=== PATIENT | male | born 1945 | race Caucasian/White ===

== ENCOUNTER 2019-01-22 10:13 | Observation (INO) ==
--- NOTE | 2019-01-22 10:26 | Emergency Department Note ---
Neuro HPI - General Chief Complaint: Stroke Symptoms Stated Complaint: Stroke SX Time Seen by Provider: 01/22/19 10:25 Source: patient Mode of arrival: ambulatory Limitations: no limitations - History of Present Illness HPI Narrative: 73-year-old male with a several hour history of left-sided facial droop slurred speech which is slowly improving. Apparently he had an episode of confusion slurred speech and inability to use right hand back at the beginning of November for which he saw his primary care provider on 12/01/2018. MRI the next day showed concern for demyelinating disease versus ADEM because of new white matter changes. These subsequently improved but then this morning he awoke with above- noted symptoms. He was last seen normal yesterday evening. Denies being on a blood thinner or diabetes. This morning he was talking with his about the plans for the day but he was somewhat unintelligible. Is not having any motor symptoms today and is able to move his right hand more normally. - Related Data Home Medications: Home Medications Medication Instructions Recorded Confirmed omeprazole 20 mg capsule,delayed 20 mg PO QAM cap 02/16/18 01/19/19 release aspirin 81 mg tablet 162 mg PO BID tab 04/06/18 01/19/19 Previous Rx's Medication Instructions Recorded Prochlorperazine [Compazine] 10 mg PO Q6HP PRN #15 tab 08/16/18 losartan 25 mg tablet 25 mg PO QDAY #90 tab 11/24/18 ketoconazole 200 mg tablet 200 mg PO QDAY #7 tab 01/05/19 meloxicam 15 mg tablet 15 mg PO QDAY #90 tab 01/05/19 albuterol sulfate HFA 90 1 puff INHALATION Q6H PRN #18 g 01/19/19 mcg/actuation aerosol inhaler doxycycline hyclate 100 mg tablet 100 mg PO BID #20 tab 01/19/19 Allergies/Adverse Reactions: Allergies Allergy/AdvReac Type Severity Reaction Status Date / Time prednisone Allergy Unknown Unknown Verified 01/19/19 09:47 opioids Allergy Unknown Unknown Uncoded 01/19/19 09:47 Review of Systems All systems ED: reviewed and negative except as stated. Past Medical History - Past Medical History Attestation: Yes: The following information was validated with the patient. PMF Narrative: Family History (Last Reviewed 01/19/19 @ 09:59 by RAMEZ Hawk) Father Heart attack Other Family history of cardiac disorder Family history of transient ischemic attacks Medical History (Last Reviewed 01/19/19 @ 09:59 by RAMEZ Hawk) Vertigo (Chronic) Xerosis of skin (Chronic) Tachycardia (Chronic) Skin lesion (Chronic) Right low back pain (Chronic) Kidney disease, chronic, stage III (moderate, EGFR 30-59 ml/min) (Chronic) Hypertension (Chronic) Enlarged prostate (Chronic) Elevated serum creatinine (Chronic) Chronic kidney disease (Chronic) Arthralgia of left hip (Chronic) Angina bullosa hemorrhagica (Chronic) Acid reflux (Chronic) Abnormal laboratory test (Chronic) Urinary hesitancy (Chronic) Generalized pruritus (Chronic) Tongue abnormality (Chronic) Dermatitis (Chronic) Skin rash (Chronic) Other chest pain (Chronic) Tinea cruris (Chronic) Fatigue (Chronic) Constipation (Chronic) Dyspnea (Chronic) Cyst, Hamilton's knee (Chronic) BPH (benign prostatic hyperplasia) (Chronic) Swollen tongue (Chronic) Knee problem (Acute) Acute bronchitis (Resolved) Acute sinusitis (Resolved) Allergic reaction to drug (Resolved) Bronchitis (Resolved) Other acute sinusitis (Resolved) Pneumonia (Resolved) Past Surgical History (Last Reviewed 01/19/19 @ 09:59 by RAMEZ Hawk) History of knee surgery (Chronic) History of repair of rotator cuff (Chronic) Medical history: 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 Denies: asthma, atrial fibrillation, cancer, COPD, CVA, DVT, DM, pulmonary embolus Psychiatric history: Denies: anxiety, depression Surgical history ED: Reports: knee replacement (left) - Social History smoking status: Never smoker Alcohol use: Reports: None Drug use: Reports: none. Denies: marijuana Physical Exam I initially saw this patient he had a left-sided facial droop. However on recheck proximally 15 minutes later it had resolved. Similarly slurred speech resolved. He is normocephalic atraumatic. Conjunctive are clear sclerae white and icteric. Extraocular movements are intact. Pupils are equal round reactive to light. No nasal discharge or congestion. Oropharynx pink and moist. Tongue is midline. Neck is supple without lymphadenopathy or thyromegaly. Heart is regular rate and rhythm no murmur appreciated. Lungs are clear to auscultation bilaterally without wheezes rales rhonchi or respiratory distress. +2 radial pulse bilaterally. Bilateral lcsw are normal and symmetrical. Similarly hip strength and shoulder strength bilaterally appear normal and symmetrical plus 3 out of 5. He is moving his fingers and toes normally and sensation to pressure and light touch appear intact. He does have some onychomycosis to bilateral toes. He is alert oriented able to answer questions appropriately. Memory seems to be intact to both short and long-term. Limitations: no limitations Course Vital Signs Temperature 97.4 F 01/22/19 10:13 Pulse Rate 94 H 01/22/19 10:13 Respiratory Rate 20 01/22/19 10:13 Blood Pressure 146/76 01/22/19 10:13 Pulse Oximetry (%) 100 01/22/19 10:13 Temperature 97.4 F 01/22/19 11:03 Pulse Rate 84 01/22/19 12:47 Respiratory Rate 14 01/22/19 12:47 Blood Pressure 149/115 01/22/19 12:47 Pulse Oximetry (%) 96 01/22/19 12:47 Neuro Symptoms/Deficit - Lab Data Lab results reviewed: Yes I reviewed the patient's lab results. Result diagrams: 01/22/19 10:25 01/22/19 10:25 Lab Results 01/22/19 01/22/19 01/22/19 Range/Units 10:25 10:25 10:25 WBC 8.8 (4.5-11.0) K/mcL RBC 5.53 (4.50-5.90) M/mcL Hgb 17.0 H (13.5-16.5) g/dL Hct 50.9 (41.0-55.0) % POC Hct 50.0 (41.0-55.0) % MCV 92.0 (80.0-100.0) fL MCH 30.8 (26.0-34.0) pg MCHC 33.5 (31.0-36.0) g/dL RDW 14.0 (11.5-14.5) % Plt Count 286 (140-440) K/mcL MPV 7.5 (7.4-10.4) fL Gran % 50.6 (38.0-78.0) % Lymph % (Auto) 34.4 (15.5-49.0) % [place] % (Auto) 9.7 (1.0-12.0) % Eos % (Auto) 4.8 (0.0-7.0) % Baso % (Auto) 0.5 (0.0-2.0) % Gran # 4.4 (1.8-8.0) K/mcL Lymph # (Auto) 3.0 (1.5-4.8) K/mcL [place] # (Auto) 0.9 (0.1-0.9) K/mcL Eos # (Auto) 0.4 (0.0-0.7) K/mcL Baso # (Auto) 0 (0.0-0.3) K/mcL POC Sodium 140 (133-145) mmol/L Sodium 139 (133-145) mmol/L POC Potassium 4.3 (3.3-5.1) mmol/L Potassium 4.4 (3.3-5.1) mmol/L POC Chloride 106 (96-108) mmol/L Chloride 103 (96-108) mmol/L Carbon Dioxide 21 L (22-30) mmol/L POC Total CO2 24 (22-30) mmol/L Anion Gap 15.0 (8-16) POC BUN 28 H (8-23) mg/dl BUN 27 H (8-23) mg/dl Creatinine 1.3 H (0.7-1.2) mg/dl POC Creatinine 1.4 H (0.7-1.2) mg/dl GFR Calculation 55 Glucose 89 (70-105) mg/dL POC Glucose 89 (70-105) mg/dL Calcium 9.7 (8.6-10.4) mg/dl POC WB Ioniz Calcium 1.23 (1.16-1.32) mmol/L Total Bilirubin 0.7 (0.0-1.0) mg/dL AST 22 (0-37) U/l ALT 38 (0-40) U/l Alkaline Phosphatase 67 (39-117) U/L Troponin T < 0.01 (0-0.03) ng/ml Total Protein 7.3 (5.9-8.4) gm/dL Albumin 4.4 (3.2-5.2) gm/dL Globulin 2.9 (2.2-3.7) gm/dL Albumin/Globulin Ratio 1.5 (1.0-2.3) Urine Color Urine Appearance Urine pH (5.0-9.0) Ur Specific [place] (1.000-1.035) Urine Protein (NEG) mg/dL Urine Glucose (UA) (NEG) mg/dL Urine Ketones (NEG) mg/dL Urine Occult Blood (<0.03) mg/dL Urine Nitrate (NEG) Urine Bilirubin (NEG) mg/dL Urine Urobilinogen (NEG) mg/dL Ur Leukocyte Esterase (NEG) /uL Ur Culture Indicated? 01/22/19 Range/Units 12:20 WBC (4.5-11.0) K/mcL RBC (4.50-5.90) M/mcL Hgb (13.5-16.5) g/dL Hct (41.0-55.0) % POC Hct (41.0-55.0) % MCV (80.0-100.0) fL MCH (26.0-34.0) pg MCHC (31.0-36.0) g/dL RDW (11.5-14.5) % Plt Count (140-440) K/mcL MPV (7.4-10.4) fL Gran % (38.0-78.0) % Lymph % (Auto) (15.5-49.0) % [place] % (Auto) (1.0-12.0) % Eos % (Auto) (0.0-7.0) % Baso % (Auto) (0.0-2.0) % Gran # (1.8-8.0) K/mcL Lymph # (Auto) (1.5-4.8) K/mcL [place] # (Auto) (0.1-0.9) K/mcL Eos # (Auto) (0.0-0.7) K/mcL Baso # (Auto) (0.0-0.3) K/mcL POC Sodium (133-145) mmol/L Sodium (133-145) mmol/L POC Potassium (3.3-5.1) mmol/L Potassium (3.3-5.1) mmol/L POC Chloride (96-108) mmol/L Chloride (96-108) mmol/L Carbon Dioxide (22-30) mmol/L POC Total CO2 (22-30) mmol/L Anion Gap (8-16) POC BUN (8-23) mg/dl BUN (8-23) mg/dl Creatinine (0.7-1.2) mg/dl POC Creatinine (0.7-1.2) mg/dl GFR Calculation Glucose (70-105) mg/dL POC Glucose (70-105) mg/dL Calcium (8.6-10.4) mg/dl POC WB Ioniz Calcium (1.16-1.32) mmol/L Total Bilirubin (0.0-1.0) mg/dL AST (0-37) U/l ALT (0-40) U/l Alkaline Phosphatase (39-117) U/L Troponin T (0-0.03) ng/ml Total Protein (5.9-8.4) gm/dL Albumin (3.2-5.2) gm/dL Globulin (2.2-3.7) gm/dL Albumin/Globulin Ratio (1.0-2.3) Urine Color Straw Urine Appearance Clear Urine pH 6.0 (5.0-9.0) Ur Specific [place] 1.027 (1.000-1.035) Urine Protein Neg (NEG) mg/dL Urine Glucose (UA) Negative (NEG) mg/dL Urine Ketones Neg (NEG) mg/dL Urine Occult Blood Neg (<0.03) mg/dL Urine Nitrate Neg (NEG) Urine Bilirubin Neg (NEG) mg/dL Urine Urobilinogen Neg (NEG) mg/dL Ur Leukocyte Esterase Neg (NEG) /uL Ur Culture Indicated? No - Radiology Data Radiology results reviewed: Yes I reviewed the patient's radiology results. MRI of the brain from 12/02/2018 shows concern for demyelinating disease-Dr. Lock, neurologist reviewed that with the patient and advised him to repeat and follow-up Ultrasound the carotids from 12/02/2018 showed mild plaquing but no significant stenosis bilaterally Echocardiogram was read as normal from the same timeframe CT scan here today showed no acute changes-chronic white matter changes seen though. CT angiogram was ordered of the head and neck which shows 50% stenosis on the left carotid but no other acute changes - EKG Data EKG attestation: Yes I reviewed and interpreted this EKG. EKG results narrative: EKG shows normal sinus rhythm without evidence of ischemia Disposition Pt seen by [facility] [employer] [facility] only: No Clinical Impression: TIA (transient ischemic attack) Summary: Concern for TIA versus acute stroke versus demyelinating disease attack. Work- up ordered. After CT scan tele-stroke will be notified. Patient is not available for intervention of TPA at this time as we do not know when the change occurred. ABCD 2 score is 6-NIH is [address] Jarvis, tele-stroke neurologist. He saw the patient via the robot. He recommended CTA of head and neck to further sort out CTA did not show any significant hemodynamic compromise. Because his ABCD 2 score is elevated we will recommend observation in the hospital. Discussed case with Dr. Pan, our hospitalist who agreed to accept the patient for observation status. He will likely get a statin and increase his aspirin while observing on telemetry. Disposition: Xfer As Inpt ([facility]) Condition: Serious Referrals: Ricardo Mathur DO [Primary Care Provider] -
[2019-01-22 10:33] LABS: POC Blood Urea Nitrogen 28 mg/dl (8-23); POC CO2 24 mmol/L (22-30); POC Calcium, Ionized 1.23 mmol/L (1.16-1.32); POC Chloride 106 mmol/L (96-108); POC Creatinine 1.4 mg/dl (0.7-1.2); POC Glucose, Random 89 mg/dL (70-105); POC Potassium 4.3 mmol/L (3.3-5.1); POC Sodium 140 mmol/L (133-145)
--- NOTE | 2019-01-22 10:39 | Cat Scan Report ---
CLINICAL INFORMATION: Acute left facial droop evaluate for CVA COMPARISON: 12/10/2008 TECHNIQUE: 2.5 mm helical slices were obtained in the skull base to vertex. Following reconstruction, axial reformatted images were reviewed at bone and parenchymal windows. The exam was performed using radiation dose optimization techniques including, but not limited to, automated exposure control, adjustment of the mA and/or kV according to patient size and use of iterative reconstruction technique. FINDINGS: The ventricles, sulci, fissures, and cisterns are symmetrically enlarged patible with mild age-related atrophy - no subdural hemorrhage or extra-axial fluid collections appreciated. Minimal chronic ischemic changes noted in the cerebral white matter. There is no cerebral hemorrhage, mass effect or edema. Bone windows are normal. IMPRESSION: Mild atrophy and chronic ischemic changes in the eight cerebral white matter that expected for age. No acute finding. Interpreted and Authenticated by: Ricarod Rodriguez 01/22/19
[2019-01-22 10:56] LABS: Basophils # (Auto) 0 K/mcL (0.0-0.3); Basophils % (Auto) 0.5 % (0.0-2.0); Eosinophils # (Auto) 0.4 K/mcL (0.0-0.7); Eosinophils % (Auto) 4.8 % (0.0-7.0); Granulocytes % (Auto) 50.6 % (38.0-78.0); Hematocrit 50.9 % (41.0-55.0); Lymphocytes % (Auto) 34.4 % (15.5-49.0); Mean Corpuscular HGB Conc 33.5 g/dL (31.0-36.0); Mean Platelet Volume 7.5 fL (7.4-10.4); Monocytes # (Auto) 0.9 K/mcL (0.1-0.9); Monocytes % (Auto) 9.7 % (1.0-12.0); Platelet Count 286 K/mcL (140-440); RBC 5.53 M/mcL (4.50-5.90); WBC 8.8 K/mcL (4.5-11.0)
[2019-01-22 11:19] LABS: ALT/SGPT 38 U/l (0-40); AST/SGOT 22 U/l (0-37); Albumin 4.4 gm/dL (3.2-5.2); Albumin/Globulin Ratio 1.5 (1.0-2.3); Alkaline Phosphatase 67 U/L (39-117); Bilirubin,Total 0.7 mg/dL (0.0-1.0); Blood Urea Nitrogen 27 mg/dl (8-23); Calcium 9.7 mg/dl (8.6-10.4); Carbon Dioxide 21 mmol/L (22-30); Chloride 103 mmol/L (96-108); Globulin 2.9 gm/dL (2.2-3.7); Glomerular Filtration Rate 55; Glucose 89 mg/dL (70-105); Potassium 4.4 mmol/L (3.3-5.1); Sodium 139 mmol/L (133-145)
--- NOTE | 2019-01-22 12:41 | Cat Scan Report ---
CLINICAL INFORMATION: Facial droop and slurred speech evaluate for CVA COMPARISON: None. TECHNIQUE: 80 cc of Isovue-300 were injected intravenously , and using SmartPrep to maximize cerebral arterial opacification, 0.625 mm helical slices were obtained from the skull base through the cerebral vertex. Following reconstruction , sagittal, coronal and axial reformatted images were processed and reviewed at multiple windows and levels. 3D volume rendered and MIP images were acquired at a independent workstation. The exam was performed using radiation dose optimization techniques including, but not limited to, automated exposure control, adjustment of the mA and/or kV according to patient size and use of iterative reconstruction technique. FINDINGS: Intracranial internal carotid, anterior and middle cerebral, intracranial vertebral, basilar and posterior cerebral arteries and their branches are well opacified and show no evidence of occlusion or significant stenosis. The superficial/deep cerebral veins and the venous sinuses are patent. IMPRESSION: Normal Interpreted and Authenticated by: Ricardo Rodriguez 01/22/19
--- NOTE | 2019-01-22 12:46 | Cat Scan Report ---
CLINICAL INFORMATION: Slurred speech and facial droop COMPARISON: None. TECHNIQUE: 80 cc of Isovue-300 were injected intravenously, and using SmartPrep to maximize arterial opacification, 0.625 mm helical slices were obtained from the thoracic aortic arch through the [place] of [place]. Following reconstruction, 1.25 mm sagittal, coronal and axial reformatted images were processed and reviewed at standard and bone algorithm/window. 3-D volume rendered, CPR and MIP images were processed using a [employer] work station.The exam was performed using radiation dose optimization techniques including, but not limited to, automated exposure control, adjustment of the mA and/or kV according to patient size and use of iterative reconstruction technique. FINDINGS: Thoracic aortic arch is normal in caliber with diffuse intimal thickening. Branching is conventional. The brachiocephalic, both subclavian, both vertebral and right common, internal and external carotid arteries are widely patent. There is a 50% stenosis of the proximal left internal carotid artery due to calcific and fibrofatty plaque. The left common and external carotid arteries are widely patent. IMPRESSION: 50% stenosis of the proximal left internal carotid artery Interpreted and Authenticated by: Ricardo Rodriguez 01/22/19
[2019-01-22 12:56] LABS: Appearance,Urine CLEAR; Bilirubin,Urine NEG (NEG); Color,Urine STRAW; Culture Indicated,Urine NO; Glucose,Urine (UA) NEGATIVE (NEG); Ketones,Urine NEG (NEG); Leukocyte Esterase,Urine NEG /uL (NEG); Nitrate,Urine NEG (NEG); Protein,Urine NEG (NEG); Specific Gravity,Urine 1.027 (1.000-1.035); Urine Blood NEG mg/dL (<0.03); Urobilinogen,Urine NEG (NEG)
--- NOTE | 2019-01-22 13:38 | Internal Med History&Physical ---
Medical - H&P: HPI Patient information: Note initiated : 01/22/19 at 1:38 pm Service Date, if different from initiated Date: [] Patient: Richmond George 73 y/o M admitted on for Stroke SX. Chief Complaint: [] Chief complaint: slurred speech/facial weakness History of present illness: Mr. George is a 73 year old M with a recent history of TIA who presents after he woke up this morning and immediately started experiencing slurred speech along with facial droop. Patient got concerned as he had recent episode of a TIA back in November for which he was evaluated with CT/MRI and has seen Dr. Alcala neurologist. Patient had a normal stroke workup except for questionable demyelination on MRI. Patient since has been asymptomatic until he woke up this morning. He is a right-handed gentleman who went to bed around 8 PM after dinner and was at his normal baseline. He denies tearing neck pain, thunderclap headache, chest palpitation, double vision, incontinence. He denies unilateral dysesthesias, swallowing difficulty or choking with food. Patient is currently on doxycycline for recent episode of acute bronchitis. Initial workup in the ER ABCD 2 score 6-NIH is 2, with CT angiogram head and neck unremarkable. Stroke neurologist was consulted and patient was beyond the window for TPA. Neurology recommended MRI/observation for TIA. Patient is currently on 81 mg aspirin. Hospitalist service was subsequently consulted for admission Time evaluation patient is alert oriented. His symptoms have improved and currently NIH score 4. He endorses to history as above. Denies fall/balance issues in the last 24 hours Review of systems 10 point review of system was performed and is negative except ones discussed above Medical - H&P: PMH Medical history: Vertigo (Chronic) Xerosis of skin (Chronic) Tachycardia (Chronic) Skin lesion (Chronic) Right low back pain (Chronic) Kidney disease, chronic, stage III (moderate, EGFR 30-59 ml/min) (Chronic) Hypertension (Chronic) Enlarged prostate (Chronic) Elevated serum creatinine (Chronic) Chronic kidney disease (Chronic) Arthralgia of left hip (Chronic) Angina bullosa hemorrhagica (Chronic) Acid reflux (Chronic) Abnormal laboratory test (Chronic) Urinary hesitancy (Chronic) Generalized pruritus (Chronic) Tongue abnormality (Chronic) Dermatitis (Chronic) Skin rash (Chronic) Other chest pain (Chronic) Tinea cruris (Chronic) Fatigue (Chronic) Constipation (Chronic) Dyspnea (Chronic) Cyst, Hamilton's knee (Chronic) BPH (benign prostatic hyperplasia) (Chronic) Swollen tongue (Chronic) Knee problem (Acute) Right Acute bronchitis (Resolved) Acute sinusitis (Resolved) Allergic reaction to drug (Resolved) Bronchitis (Resolved) Other acute sinusitis (Resolved) Pneumonia (Resolved) Surgical History History of knee surgery (Chronic) Left History of repair of rotator cuff (Chronic) Right Family History Father Heart attack Other Family history of cardiac disorder Family history of transient ischemic attacks Social History marital status: single smoking status: Never smoker alcohol intake frequency: does not drink substance use type: does not use Medical - H&P: Meds Home Medications Medication Instructions Recorded Confirmed Type omeprazole 20 mg capsule,delayed 20 mg PO QAM cap 02/16/18 01/22/19 History release aspirin 81 mg tablet 162 mg PO BID tab 04/06/18 01/22/19 History Prochlorperazine [Compazine] 10 mg PO Q6HP PRN #15 tab 08/16/18 01/22/19 Rx losartan 25 mg tablet 25 mg PO QDAY #90 tab 11/24/18 01/22/19 Rx meloxicam 15 mg tablet 15 mg PO QDAY #90 tab 01/05/19 01/22/19 Rx albuterol sulfate HFA 90 1 puff INHALATION Q6H PRN #18 g 01/19/19 01/22/19 Rx mcg/actuation aerosol inhaler doxycycline hyclate 100 mg tablet 100 mg PO BID #20 tab 01/19/19 01/22/19 Rx Diazepam [Valium] 2 mg PO PRN PRN 01/22/19 01/22/19 History Allergies Allergy/AdvReac Type Severity Reaction Status Date / Time prednisone Allergy Unknown Unknown Verified 01/19/19 09:47 opioids Allergy Unknown Unknown Uncoded 01/19/19 09:47 Medical - H&P: Exam - Constitutional Vitals: Temp Pulse Resp BP Pulse Ox 97.4 F 87 10 L 157/97 97 01/22/19 11:03 01/22/19 13:17 01/22/19 13:35 01/22/19 13:32 01/22/19 13:17 General appearance: no acute distress Exam: Alert and oriented Pupils symmetric Movements symmetric Oral cavity dry No ear discharge Head normocephalic S1-S2 regular rhythm Diminished breath sounds bases Abdomen soft nontender Skin no suspicious lesion Lower extremity no cyanosis clubbing or joint swelling, degenerative joint changes Psych alert cooperative Neuro symmetrical strength upper and lower extremity, symmetrical tone Facial droop left side, remaining cranial nerves unremarkable No abnormal sensations Normal heart function Medical - H&P: Reslt - Labs CBC & Chem 7: 01/22/19 10:25 01/22/19 10:25 Labs: Short CBC 01/22/19 Range/Units 10:25 WBC 8.8 (4.5-11.0) K/mcL Hgb 17.0 H (13.5-16.5) g/dL Hct 50.9 (41.0-55.0) % Plt Count 286 (140-440) K/mcL BMP 01/22/19 10:25 Sodium 139 Potassium 4.4 Chloride 103 Carbon Dioxide 21 L BUN 27 H Creatinine 1.3 H Glucose 89 Calcium 9.7 Cardiac Enzymes 01/22/19 Range/Units 10:25 Troponin T < 0.01 (0-0.03) ng/ml Liver Function 01/22/19 Range/Units 10:25 Total Bilirubin 0.7 (0.0-1.0) mg/dL AST 22 (0-37) U/l ALT 38 (0-40) U/l Alkaline Phosphatase 67 (39-117) U/L Albumin 4.4 (3.2-5.2) gm/dL Urine 01/22/19 Range/Units 12:20 Urine Color Straw Urine Appearance Clear Urine pH 6.0 (5.0-9.0) Ur Specific [place] 1.027 (1.000-1.035) Urine Protein Neg (NEG) mg/dL Urine Glucose (UA) Negative (NEG) mg/dL Medical - H&P: A/P (1) TIA (transient ischemic attack) Current visit: Yes Status: Acute * TIA-clinically improving. Current NIH score 2. Associated mild dysarthria with facial droop, recent workup including echo/MRI/CT reviewed. Repeat MRI ordered. Start full dose aspirin/atorvastatin. Admit in telemetry. Given recent TIA in November with right-sided symptoms compared to present left-sided symptoms, embolic episode high in differential. 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
[2019-01-22] MEDS ORDERED: ONDANSETRON 4 MG/2 ML VIAL IV PRN (15:05)
[2019-01-22] MEDS ORDERED: traZODone HCL 50 MG TABLET PO PRN (15:05)
[2019-01-22] MEDS ORDERED: ATORVASTATIN 40 MG TABLET PO ONE (15:05)
[2019-01-22] MEDS ORDERED: POTASSIUM CHLORIDE 20 MEQ PACKET PO PRN (15:05)
[2019-01-22] MEDS ORDERED: ACETAMINOPHEN 1,000 MG/100 ML BOTTLE IV PRN (15:05)
[2019-01-22] MEDS ORDERED: ACETAMINOPHEN 325 MG TABLET PO PRN (15:05)
[2019-01-22] MEDS ORDERED: hydrALAZINE 20 MG/ML VIAL IV PRN (15:05)
[2019-01-22] MEDS ORDERED: MAGNESIUM HYDROXIDE 30 ML ORAL.SUSP PO PRN (15:05)
[2019-01-22] MEDS ORDERED: guaiFENesin/CODEINE 10 ML UDC PO PRN (15:05)
[2019-01-22] MEDS ORDERED: MAGNESIUM SULFATE 2 GM/50 ML BAG IV PRN (15:05)
[2019-01-22] MEDS ORDERED: POLYETHYLENE GLYCOL 3350 17 GM PACKET PO PRN (15:05)
[2019-01-22] MEDS ORDERED: ATORVASTATIN 20 MG TABLET PO ONE (15:15)
[2019-01-22] MEDS: 0.9 % SODIUM CHLORIDE 10 ML SYRINGE IV SCH ×2 (15:45→21:09)
[2019-01-22 18:35] LABS: Hemoglobin A1C 5.6 % HGB (4.0-6.0)
[2019-01-22] MEDS ORDERED: HEPARIN 5,000 UNIT/ML VIAL SQ SCH (21:00)
[2019-01-22] MEDS ORDERED: DOCUSATE SODIUM 100 MG CAPSULE PO SCH (21:00)
[2019-01-22] MEDS ORDERED: SENNOSIDES/DOCUSATE SODIUM 1 TAB TABLET PO SCH (21:00)
[2019-01-22] MEDS ORDERED: CYANOCOBALAMIN (VITAMIN B-12) 500 MCG TABLET PO SCH (21:00)
[2019-01-23 05:30] LABS: Hematocrit 47.4 % (41.0-55.0); Mean Cell Volume 92.7 fL (80.0-100.0); Mean Corpuscular HGB Conc 33.7 g/dL (31.0-36.0); Mean Platelet Volume 7.6 fL (7.4-10.4); Platelet Count 257 K/mcL (140-440); RBC 5.12 M/mcL (4.50-5.90); Red Cell Distribution Width 13.9 % (11.5-14.5); WBC 8.1 K/mcL (4.5-11.0)
[2019-01-23] MEDS: 0.9 % SODIUM CHLORIDE 10 ML SYRINGE IV SCH (05:50)
[2019-01-23 05:54] LABS: ALT/SGPT 33 U/l (0-40); AST/SGOT 18 U/l (0-37); Albumin/Globulin Ratio 1.6 (1.0-2.3); Alkaline Phosphatase 63 U/L (39-117); Bilirubin,Direct < 0.2 mg/dL (0.0-0.3); Bilirubin,Total 0.6 mg/dL (0.0-1.0); Blood Urea Nitrogen 27 mg/dl (8-23); Calcium 9.5 mg/dl (8.6-10.4); Carbon Dioxide 24 mmol/L (22-30); Chloride 103 mmol/L (96-108); Gamma Glutamyl Transpeptidase 29 U/L (8-61); Globulin 2.5 gm/dL (2.2-3.7); Glomerular Filtration Rate 50; Glucose 101 mg/dL (70-105); Lactate Dehydrogenase 170 U/L (94-250); Magnesium 2.2 mg/dL (1.6-2.5); Phosphorous 3.6 mg/dL (2.7-4.5); Potassium 4.4 mmol/L (3.3-5.1); Sodium 139 mmol/L (133-145); Triglycerides 254 mg/dl (<150); Uric Acid 5.9 mg/dL (2.5-8.0)
[2019-01-23 06:28] LABS: Eosinophils % (Manual) 2 % (0-7); Lymphocytes % 41 % (15-49); Monocytes % (Manual) 5 % (1-12); Platelet Estimate NORMAL (NORMAL); RBC Morphology NORMAL (NORMAL); Segmented Neutrophils % 52 % (38-78)
--- NOTE | 2019-01-23 08:47 | Transfer Summary ---
Transfer Discharge Sum: Prov Patient information: Note initiated : 01/23/19 at 8:41 am Service Date, if different from initiated Date: [] Patient: Richmond George 73 y/o M admitted on 01/22/19 for Stroke SX. Chief Complaint: [] Date of admission: 01/22/19 14:35 Discharge Date: 01/23/19 Primary care physician: Ricardo Mathur Consults: 01/22/19 Consult to Physician [CONS] Stat Comment: Consulting Provider: Tyrell Pan Reason For Exam: Physician to Consult [facility] Transfer Discharge Sum: Diag - Discharge Diagnosis (1) TIA (transient ischemic attack) Status: Acute Transfer Discharge Sum: Med - Medications Active and Home Medications: Home Medications omeprazole 20 mg capsule,delayed release 20 mg PO QAM cap 02/16/18 [History Confirmed 01/22/19] aspirin 81 mg tablet 162 mg PO BID tab 04/06/18 [History Confirmed 01/22/19] Prochlorperazine [Compazine] 10 mg PO Q6HP PRN #15 tab 08/16/18 [Rx Confirmed 01/22/19] losartan 25 mg tablet 25 mg PO QDAY #90 tab 11/24/18 [Rx Confirmed 01/22/19] meloxicam 15 mg tablet 15 mg PO QDAY #90 tab 01/05/19 [Rx Confirmed 01/22/19] albuterol sulfate HFA 90 mcg/actuation aerosol inhaler 1 puff INHALATION Q6H PRN #18 g 01/19/19 [Rx Confirmed 01/22/19] doxycycline hyclate 100 mg tablet 100 mg PO BID #20 tab 01/19/19 [Rx Confirmed 01/22/19] Diazepam [Valium] 2 mg PO PRN PRN 01/22/19 [History Confirmed 01/22/19] Active Medications Acetaminophen (Tylenol) 650 mg PO Q4-6HP PRN PRN Reason: PAIN/FEVER > 101 Aspirin (Aspirin) 324 mg CHEWED DAILY NIELS Atorvastatin Calcium (Lipitor) 40 mg PO HS NIELS Cyanocobalamin (Vitamin B-12) 1,000 mcg PO BID NIELS Stop: 01/27/19 09:01 Last Admin: 01/22/19 21:09 Dose: 1,000 mcg Documented by: Docusate Sodium (Colace) 100 mg PO BID [facility] Last Admin: 01/22/19 21:08 Dose: 100 mg Documented by: Guaifenesin/Codeine Phosphate (Robitussin Ac) 10 ml PO Q4HP PRN PRN Reason: Cough Last Admin: 01/22/19 21:09 Dose: 10 ml Documented by: Heparin Sodium (Porcine) (Heparin) 5,000 unit SQ Q12 [facility] Last Admin: 01/22/19 21:08 Dose: 5,000 unit Documented by: Hydralazine HCl (Apresoline) 10 mg IV Q4-6HP PRN PRN Reason: Hypertension Magnesium Sulfate (Magnesium Sulfate) 2 gm in 50 mls @ 50 mls/hr IV UD PRN PRN Reason: MG = or < 1.7 Acetaminophen (Ofirmev) 1,000 mg in 100 mls @ 200 mls/hr IV Q6HP PRN PRN Reason: PAIN/FEVER > 101 Last Infusion: 01/22/19 20:00 Dose: Infused Documented by: Iron Carb/Multivit/[place]/Folic Acid (Multivitamin W/Minerals) 1 tab PO DAILY [facility] Magnesium Hydroxide (Milk Of Magnesia) 30 ml PO HSP PRN PRN Reason: Constipation Ondansetron HCl (Zofran) 4 mg IV Q4-6HP PRN PRN Reason: Nausea And Vomiting Polyethylene Glycol (Miralax) 17 gm PO DAILYP PRN PRN Reason: Constipation Potassium Chloride (Klor-Con) 40 meq PO DAILYP PRN PRN Reason: K+ < 3.5 Senna/Docusate Sodium (Senna Plus Tablet) 1 tab PO HS [facility] Last Admin: 01/22/19 21:08 Dose: Not Given Documented by: Sodium Chloride (Saline Flush) 10 ml IV Q8 [facility] Last Admin: 01/23/19 05:50 Dose: 10 ml Documented by: Thiamine HCl (Vitamin B1) 100 mg PO DAILY [facility] Trazodone HCl (Desyrel) 50 mg PO HSP PRN PRN Reason: Insomnia Last Admin: 01/22/19 21:09 Dose: 50 mg Documented by: Transfer Discharge Sum: Hosp Hospital course: Transfer diagnosis * Acute CVA with cranial nerve involvement. CT head/CT angiogram head and neck negative. Further neuroimaging including MRI brain/echo with bubble study warranted. Patient will be transferred tertiary Center for further evaluation. Continue aspirin and statin. No evidence of arrhythmia on telemetry. In light of recent TIA in November embolic episode high in differential. 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 George is a 73 year old M with a recent history of TIA who presents after he woke up this morning and immediately started experiencing slurred speech along with facial droop. Patient got concerned as he had recent episode of a TIA back in November for which he was evaluated with CT/MRI and has seen Dr. Alcala neurologist. Patient had a normal stroke workup except for questionable demyelination on MRI. Patient since has been asymptomatic until he woke up this morning. He is a right-handed gentleman who went to bed around 8 PM after dinner and was at his normal baseline. He denies tearing neck pain, thunderclap headache, chest palpitation, double vision, incontinence. He denies unilateral dysesthesias, swallowing difficulty or choking with food. Patient is currently on doxycycline for recent episode of acute bronchitis. Initial workup in the ER ABCD 2 score 6-NIH is 2, with CT angiogram head and neck unremarkable. Stroke neurologist was consulted and patient was beyond the window for TPA. Neurology recommended MRI/observation for TIA. Patient is currently on 81 mg aspirin. Hospitalist service was subsequently consulted for admission At the time evaluation patient is alert oriented. His symptoms have improved and currently NIH score 2. He endorses to history as above. Denies fall/balance issues in the last 24 hours 01/23- patient's experiencing garbled speech and bit his tongue while attempting to talk this morning on the right side. Persistent right facial droop. NIH score 3. Currently on aspirin 325 and atorvastatin 40. No MRI available. P atient would need MRI brain/echo with bubble study and will need transfer to tertiary Center for further evaluation. No overnight telemetry events. Case discussed with [facility] hospitalist Dr. Negro who graciously accepted this patient for further management. Patient be transferred via ground ambulance - Time Spent with Patient Total time spent providing and/or coordinating transfer services: Greater than 30 minutes Transfer Discharge Sum: Exam - Constitutional Vitals: Vital Signs Temp Pulse Pulse Resp BP BP Pulse Ox 01/23/19 07:57 98.5 F 16 143/81 98 01/23/19 03:55 97.6 F 18 116/78 96 01/22/19 23:18 97.3 F 89 20 129/91 97 01/22/19 22:22 97.6 F 01/22/19 19:54 99.7 F H 01/22/19 19:09 101.5 F H 01/22/19 18:59 101.5 F H 97 H 18 172/86 97 01/22/19 16:00 97.4 F 89 18 142/74 98 01/22/19 15:05 97.4 F 89 18 142/74 98 01/22/19 14:43 97.4 F 86 18 154/100 98 01/22/19 14:35 98.1 F 89 16 142/74 98 01/22/19 14:17 18 183/117 01/22/19 14:02 86 13 154/100 98 01/22/19 13:47 18 159/104 01/22/19 13:35 10 L 01/22/19 13:32 13 157/97 01/22/19 13:17 87 12 157/101 97 01/22/19 13:02 85 11 L 147/106 97 01/22/19 12:47 84 14 149/115 96 01/22/19 12:32 80 16 149/92 97 01/22/19 12:23 87 16 157/105 97 01/22/19 11:59 80 10 L 95 01/22/19 11:46 86 11 L 151/106 97 01/22/19 11:35 89 16 149/111 96 01/22/19 11:31 87 13 162/115 97 01/22/19 11:18 88 161/109 97 01/22/19 11:16 87 17 164/120 94 01/22/19 11:03 97.4 F 85 14 166/109 96 01/22/19 11:01 88 20 148/112 97 01/22/19 10:56 85 14 96 01/22/19 10:46 88 16 166/109 96 01/22/19 10:42 87 20 150/123 96 01/22/19 10:41 88 21 95 01/22/19 10:13 97.4 F 94 H 20 146/76 100 Intake and Output 01/22/19 01/23/19 01/23/19 21:59 05:59 13:59 Intake Total 200 Output Total 200 320 Balance 200 -200 -320 Intake: IV 100 Oral 100 Output: Void Amount 200 320 Other: Urine Appearance Clear Clear Urine Color Bright Yellow Bright Yellow # Voids 2 Weight 201 lb 8 oz Transfer Discharge Sum: Data Procedures and tests throughout hospitalization: Pending Orders Transfer Discharge Sum: A/P - Problem Maintenance (1) TIA (transient ischemic attack) Status: Acute - Plan Functional capacity at transfer: independent ambulation Overall status at transfer: patient is not back to baseline Disposition: Xfer [facility] Quality Measure Queries - VTE Deep Vein Thrombosis/Pulmonary Embolism Present on Admission: No
[2019-01-23] MEDS ORDERED: MULTIVIT,THER IRON,CA,FA & MIN 1 TABLET PO SCH (09:00)
[2019-01-23] MEDS ORDERED: ASPIRIN 81 MG TAB.CHEW CHEWED SCH (09:00)
[2019-01-23] MEDS ORDERED: THIAMINE 100 MG TABLET PO SCH (09:00)
[2019-01-23] MEDS ORDERED: ATORVASTATIN 20 MG TABLET PO SCH (21:00)
== END 2019-01-23 09:55 | disposition short-term general hospital (02) ==
LOC: ICU 10:13 → ED 10:13 → ICU 14:40
PROVIDERS: ADMIT Internal Medicine; ATTEND Internal Medicine